=== PATIENT | female | born 1975 | race Caucasian/White ===

== ENCOUNTER → 2016-05-31 | Outpatient (CLI) | payer MEDICAID ==
[~2016-05-31] MED LIST: ATEN50TA PO; CITA20TA7 PO; LABE200T3 PO; LISI40TA PO
--- NOTE | 2016-05-31 18:56 | Diagnostic Imaging Report ---
Bilateral diagnostic mammogram. INDICATION: Palpable areas in the left breast. No prior studies are available for comparison. Reportedly, study was performed before in [place]; however, the patient does not recall where. The current study was also evaluated with a Computer Aided Detection (CAD) system. FINDINGS: The breasts are composed of heterogeneously dense parenchyma which may decrease mammographic sensitivity. Palpable areas in the left breast are marked with no definite underlying lesion. No suspicious calcification or mass identified. IMPRESSION: There is no mammographic evidence of malignancy. Ultrasound evaluation is pending. ACR BI-RADS Category 0: Incomplete. (Needs additional imaging evaluation). Result letter will be mailed to the patient. Note: At least 10% of breast cancer is not imaged by mammography. Dictated by: Dictated on workstation # [id number]
--- NOTE | 2016-05-31 20:26 | Diagnostic Imaging Report ---
EXAM: Bilateral breast ultrasound. INDICATION: Breast lumps in the left side and dense breast parenchyma on the right side with questionable asymmetry. FINDINGS: The four-quadrant and retroareolar region of each breast was scanned with no underlying abnormality. Specifically, the areas of lumps in the left breast outer aspect and axilla demonstrate no underlying abnormality. IMPRESSION: Negative study. Clinical followup of the palpable area is recommended. BI-RADS 1. ACR BI-RADS Category 1: Negative. Result letter will be mailed to the patient. Note: At least 10% of breast cancer is not imaged by mammography. Dictated by: Dictated on workstation # [id number]
== END ==
LOC: RAD 07:53
PROVIDERS: ATTEND Family Medicine
DX: N63 Unspecified lump in breast (principal)
CPT/HCPCS: 77066

== ENCOUNTER 2017-11-16 19:45 | Emergency (ER) | payer MEDICAID ==
[~2017-11-16] VITALS: Ht 170.2 cm; Wt 99.8 kg
[~2017-11-16 19:45] MED LIST changes: -CITA20TA7 PO; +CITA20TA9 PO; -LABE200T3 PO; +LABE200T7 PO
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
[2017-11-16] MEDS ORDERED: meTOprolol TARTRATE 25 MG (LOPRESSOR) TABLET PO ONE (20:45)
[2017-11-16] MEDS ORDERED: IBUPROFEN 800 MG (MOTRIN) TAB PO ONE (21:15)
[2017-11-16] MEDS ORDERED: ACETAMINOPHEN 325 MG TABLET PO ONE (21:15)
--- NOTE | 2017-11-16 21:18 | Diagnostic Imaging Report ---
INDICATION: Fall and right hand pain. TIME OF EXAM: 9:16 p.m. EXAMINATION: Three views of the right hand were obtained. FINDINGS: The metacarpals are intact. The phalanges appear intact. Carpus is unremarkable. The distal radius and ulna are intact. No fractures are seen. IMPRESSION: No acute bony abnormality is identified. Dictated by: Dictated on workstation # [id number]
--- NOTE | 2017-11-16 21:19 | Diagnostic Imaging Report ---
INDICATION: Fall with right arm pain. TIME OF EXAM: 9:14 p.m. EXAMINATION: Two views of the right forearm were obtained. FINDINGS: Alignment at the elbow and wrist is normal. Radius and ulna appear intact. No fractures are seen. IMPRESSION: No acute bony abnormality is identified. Dictated by: Dictated on workstation # [id number]
--- NOTE | 2017-11-16 21:21 | Diagnostic Imaging Report ---
INDICATION: Fall and low back pain. TIME OF EXAM 9:23 p.m. EXAMINATION: Three views of the lumbar spine were obtained. FINDINGS: Curvature and alignment are normal. Vertebral body heights are well maintained. No acute compression fracture is seen. There is degenerative disc disease at the L4-5 level with disc space narrowing and marginal spurring. IMPRESSION: Lumbar spondylosis. No acute bony abnormality is detected. Dictated by: Dictated on workstation # [id number]
--- NOTE | 2017-11-16 21:23 | Diagnostic Imaging Report ---
INDICATION: Fall and right shoulder pain. Time of exam: 9:20 PM 3 views of the right shoulder were obtained. The glenohumeral and acromioclavicular alignment are normal. Acromiohumeral space is normal. No fracture or dislocation is seen. There is calcified granuloma in the right upper lobe. IMPRESSION: No acute bony abnormality is identified. Dictated by: Dictated on workstation # [id number]
[2017-11-16 21:30] VITALS: BP 144/76
== END 2017-11-16 21:30 | disposition home or self-care (01) ==
LOC: EDUNIT# 19:45 → ER 19:46
DX: S63.501A Unspecified sprain of right wrist, initial encounter (principal); M25.511 Pain in right shoulder; R40.2142 Coma scale, eyes open, spontaneous, at arrival to emergency department; R40.2252 Coma scale, best verbal response, oriented, at arrival to emergency department; R40.2362 Coma scale, best motor response, obeys commands, at arrival to emergency department; M54.5 Low back pain; I10 Essential (primary) hypertension; F41.9 Anxiety disorder, unspecified; Z88.1 Allergy status to other antibiotic agents; Z88.8 Allergy status to other drugs, medicaments and biological substances; Z98.51 Tubal ligation status; Z98.890 Other specified postprocedural states; Z87.19 Personal history of other diseases of the digestive system; W19.XXXA Unspecified fall, initial encounter
CPT/HCPCS: 72100; 73030; 73090; 73130

== ENCOUNTER 2018-11-13 13:47 | Emergency (ER) | payer MEDICAID ==
[~2018-11-13] VITALS: Ht 170.1 cm; Wt 90.9 kg
--- NOTE | 2018-11-13 14:53 | ED Upper Extremity ---
General Chief Complaint: Upper Extremity Stated Complaint: RIGHT HAND INJURY Nursing Triage Note: PATIENT TRIPPED AND FELL, LANDED ON HER RIGHT HAND. SWELLIGN AND NUMBNESS AND PAIN TO RIGHT HAND AND WRIST. Nursing Sepsis Screen: No Definite Risk Source: patient Exam Limitations: no limitations History of Present Illness Date Seen by Provider: Nov 13, 2018 Time Seen by Provider: 14:55 Initial Comments Patient is a 43-year-old female that fell this morning at 7 AM to her right hand. Pain in wrist of the 9 out of 10. She was attempting to jump a winch cable. There is a small laceration to the right palm. She is having some pain and tingling around the right thumb and forefinger with limited range of motion. Allergies and Home Medications Allergies Coded Allergies: Cephalexin Monohydrate (Unverified Allergy, 05/28/10) Paroxetine HCl (Unverified Allergy, 05/28/10) Patient Home Medication List Home Medication List Reviewed: Yes Review of Systems Constitutional: no symptoms reported Respiratory: no symptoms reported Cardiovascular: no symptoms reported Gastrointestinal: no symptoms reported Musculoskeletal: see HPI Skin: see HPI Psychiatric/Neurological: Anxiety Past Sdlhwui-Ftooaq-Lnluvj Hx Patient Social History Alcohol Use: Denies Use Recreational Drug Use: Yes (MARIJUANA) Smoking Status: Current Everyday Smoker Type Used: Cigarettes 2nd Hand Smoke Exposure: Yes Recent Foreign Travel: No Contact w/Someone Who Travel: No Recent Infectious Disease Expo: No Recent Hopitalizations: No Physical Abuse: No Sexual Abuse: No Seasonal Allergies Seasonal Allergies: No Past Medical History Surgeries: Yes Section, Ear Surgery, Orthopedic, Tubal Ligation Respiratory: No Cardiac: Yes Hypertension Neurological: No Genitourinary: No Gastrointestinal: No Hemorrhoids Musculoskeletal: Yes Degenerate Disk Disease, Chronic Back Pain Endocrine: No HEENT: No Cancer: No Psychosocial: Yes Anxiety Integumentary: No Blood Disorders: No Physical Exam Vital Signs Vital Signs - First Documented 11/13/18 14:05 Temp 36.0 Pulse 107 Resp 18 B/P (MAP) 148/95 (112) Pulse Ox 98 Capillary Refill : Less Than 3 Seconds Height, Weight, BMI Height: 5'7.00" Weight: 220lbs. oz. 99.293503ei; 31.00 BMI Method:Stated General Appearance: WD/WN, no apparent distress Cardiovascular: normal peripheral pulses, regular rate, rhythm Respiratory: lungs clear, normal breath sounds Gastrointestinal: non tender, soft Shoulder: normal inspection, normal ROM; No bone tenderness Elbow/Forearm: normal inspection, non-tender, no evidence of injury Wrist: Yes bone tenderness; No ecchymosis; Yes limited ROM, Yes soft tissue tenderness; No swelling Hand: Right, laceration (1.5 cm crescent laceration with dried blood, already closed by primary healing. No debris noted in wound), limited ROM, soft tissue tenderness, swelling Neurologic/Tendon: responds to pain Neurologic/Psychiatric: alert, oriented x 3, other Skin: normal color, warm/dry Progress/Results/Core Measures Results/Orders My Orders Orders - BIENVENIDO GUERRERO APRN Hand, Right, 3 Views (11/13/18 14:53) Wrist, Right, 3 Views Or More (11/13/18 14:53) Vital Signs/I&O 11/13/18 14:05 Temp 36.0 Pulse 107 Resp 18 B/P (MAP) 148/95 (112) Pulse Ox 98 Blood Pressure Mean: 112 Departure Communication (Admissions) Patient placed in a thumb spica Impression Primary Impression: Hand laceration Qualified Codes: S61.411A - Laceration without foreign body of right hand, initial encounter Additional Impression: Contusion of wrist Disposition: HOME, SELF-CARE Condition: Stable Departure-Patient Inst. Decision time for Depature: 15:19 Referrals: [facility] [place] (PCP/Family) Primary Care Physician Patient Instructions: Common Wrist Injuries (DC) Add. Discharge Instructions: All discharge instructions reviewed with patient and/or family. Voiced u nderstanding. 1. Wear the splint as needed for comfort 2. Tylenol and Motrin for pain control BIENVENIDO GUERRERO APRN Nov 13, 2018 14:53
--- NOTE | 2018-11-13 15:16 | Diagnostic Imaging Report ---
EXAMINATION: Right hand radiographs, 3 views. COMPARISON: None. HISTORY: 43-year-old female, fall. Right hand and wrist pain. FINDINGS: There is no acute fracture. There is no radiopaque foreign body. There is no subluxation or dislocation. Joint spaces are well preserved. IMPRESSION: No acute bony abnormality of the right hand. Dictated by: Dictated on workstation # [id number]
--- NOTE | 2018-11-13 15:16 | Diagnostic Imaging Report ---
EXAMINATION: Right wrist radiographs, 3 views. COMPARISON: None. HISTORY: 43-year-old female, fall. Right wrist and hand pain. FINDINGS: There is no acute fracture. There is no radiopaque foreign body. There is no abnormal bone alignment. There is no prominent focal soft tissue swelling. The joint spaces are well-preserved. IMPRESSION: Unremarkable radiographs of the right wrist. Dictated by: Dictated on workstation # [id number]
[2018-11-13] MEDS ORDERED: TETANUS,DIPTH,PERTUSS P/F (BOOSTRIX) 0.5 ML VIAL IM ONE ×2 (15:28→15:45)
[2018-11-13 15:40] VITALS: BP 148/95
== END 2018-11-13 15:40 | disposition home or self-care (01) ==
LOC: EDUNIT# 13:47 → ER 13:49
DX: S61.411A Laceration without foreign body of right hand, initial encounter (principal); S60.211A Contusion of right wrist, initial encounter; I10 Essential (primary) hypertension; F41.9 Anxiety disorder, unspecified; F17.210 Nicotine dependence, cigarettes, uncomplicated; Z98.51 Tubal ligation status; Z88.1 Allergy status to other antibiotic agents; Z88.8 Allergy status to other drugs, medicaments and biological substances; W01.0XXA Fall on same level from slipping, tripping and stumbling without subsequent striking against object, initial encounter
CPT/HCPCS: 73110; 73130; 90715

== ENCOUNTER 2018-11-26 10:42 | Emergency (ER) | payer MEDICAID ==
[~2018-11-26] VITALS: Ht 170 cm; Wt 90.0 kg
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
[2018-11-26] MEDS ORDERED: KETOROLAC 30 MG/ML VIAL IVP ONE (11:00)
[2018-11-26] MEDS ORDERED: LORazepam INJ 2 MG/ML (ATIVAN) VIAL ONE (11:03)
[2018-11-26 11:04] LABS: BILIRUBIN,URINE NEGATIVE (NEGATIVE); CLARITY,URINE SLIGHTLY CLOUDY; COLOR,URINE YELLOW; GLUCOSE, URINE (UA) NEGATIVE (NEGATIVE); KETONES,URINE NEGATIVE (NEGATIVE); LEUKOCYTE ESTERASE ,URINE 1+ (NEGATIVE); NITRITE,URINE NEGATIVE (NEGATIVE); PH,URINE 5 (5-9); PROTEIN,URINE 2+ (NEGATIVE); UROBILINOGEN,URINE 1 MG/DL (NORMAL)
[2018-11-26 11:05] LABS: BASOPHILS % (AUTO) 0 % (0-10); EOSINOPHILS # (AUTO) 0.2 10^3/uL (0.0-0.3); EOSINOPHILS % (AUTO) 1 % (0-10); HEMATOCRIT 35 % (35-52); HEMOGLOBIN 12.2 G/DL (11.5-16.0); LYMPHOCYTES # (AUTO) 1.3 X 10^3 (1.0-4.0); LYMPHOCYTES % (AUTO) 7 % (12-44); MEAN CORPUSCULAR HEMOGLOBIN 30 PG (25-34); MEAN CORPUSCULAR HGB CONC 35 G/DL (32-36); MEAN CORPUSCULAR VOLUME 86 FL (80-99); MEAN PLATELET VOLUME 9.4 FL (7.4-10.4); MONOCYTES # (AUTO) 0.9 X 10^3 (0.0-1.0); MONOCYTES % (AUTO) 5 % (0-12); NEUTROPHILS # (AUTO) 15.2 X 10^3 (1.8-7.8); NEUTROPHILS % (AUTO) 86 % (42-75); PLATELET COUNT 268 10^3/uL (130-400); RED CELL DISTRIBUTION WIDTH 12.7 % (10.0-14.5); WHITE BLOOD COUNT 17.7 10^3/uL (4.3-11.0)
[2018-11-26 11:12] LABS: BACTERIA,URINE NEGATIVE /HPF; RBC,URINE RARE /HPF; WBC,URINE RARE /HPF
[2018-11-26 11:13] LABS: HCG,QUALITATIVE URINE NEGATIVE (NEGATIVE)
[2018-11-26] MEDS ORDERED: LORazepam INJ 2 MG/ML (ATIVAN) VIAL IVP PRN (11:15)
[2018-11-26 11:21] LABS: AMPHETAMINE SCREEN, URINE POSITIVE (NEGATIVE); BARBITURATE SCREEN URINE NEGATIVE (NEGATIVE); BENZODIAZEPINES SCREEN URINE NEGATIVE (NEGATIVE); CANNABINOID SCREEN, URINE NEGATIVE (NEGATIVE); COCAINE SCREEN URINE NEGATIVE (NEGATIVE); METHADONE STAT NEGATIVE (NEGATIVE); METHAMPHETAMINE SCREEN URINE S POSITIVE (NEGATIVE); OPIATE SCREEN URINE NEGATIVE (NEGATIVE); OXYCODONE STAT NEGATIVE (NEGATIVE); PROPOXYPHENE STAT NEGATIVE (NEGATIVE); TRICYCLIC ANTIDEPRESSANTS SCRE NEGATIVE (NEGATIVE)
[2018-11-26 11:21] LABS: BAND NEUTROPHILS 0 %; BASOPHILS % (MANUAL) 0 %; EOSINOPHILS % (MANUAL) 3 %; LYMPHOCYTES % (MANUAL) 11 %; MONOCYTES % (MANUAL) 2 %; NEUTROPHILS % (MANUAL) 84 %; RBC MORPH NORMAL
[2018-11-26 11:25] LABS: ALANINE AMINOTRANSFERASE 39 U/L (0-55); ALBUMIN 3.8 GM/DL (3.2-4.5); ALKALINE PHOSPHATASE 84 U/L (40-136); BILIRUBIN,TOTAL 0.3 MG/DL (0.1-1.0); BUN/CREATININE RATIO 17; CALCIUM 8.8 MG/DL (8.5-10.1); CARBON DIOXIDE 21 MMOL/L (21-32); CHLORIDE 111 MMOL/L (98-107); CREATININE SERUM 0.76 MG/DL (0.60-1.30); GFR ESTIMATED > 60; GLUCOSE 99 MG/DL (70-105); POTASSIUM 3.5 MMOL/L (3.6-5.0); SODIUM 139 MMOL/L (135-145); TOTAL PROTEIN 6.8 GM/DL (6.4-8.2)
--- NOTE | 2018-11-26 12:06 | NUR ---
PT RESTING W EYES CLOSED IV FLUIDS CONT AT THIS X. NO CO OF PAIN
--- NOTE | 2018-11-26 12:16 | Diagnostic Imaging Report ---
PROCEDURE: CT urinary tract, rule out kidney stone. TECHNIQUE: Multiple contiguous axial images were obtained through the abdomen and pelvis without the use of intravenous contrast. Auto Exposure Controls were utilized during the CT exam to meet ALARA standards for radiation dose reduction. INDICATION: Abdominal pain There are no prior studies available for comparison. There is no evidence for nephrolithiasis or urolithiasis and the kidneys do not seem to be obstructed. There may be a duplicated collecting system on the right. The urinary bladder is not well-distended and consequently difficult to assess. There is no obvious bladder abnormality evident. The uterus is prominent but not enlarged. There is no pelvic mass or free fluid collection evident. The appendix was visualized and is not abnormally thickened. There is a 1.5 cm area of diminished density in the right lower liver adjacent to the falciform ligament. This finding is of uncertain etiology but could represent hemangioma. If further evaluation is desired, then either a follow-up CT abdomen and pelvis with hemangioma protocol or ultrasound would be recommended. The liver is otherwise unremarkable. The spleen, pancreas, adrenals, gallbladder, aorta and inferior vena cava show no sign of an acute abnormality. The stomach is filled with fluid and consequently difficult to assess. The lung bases are generally clear. There is mild dependent atelectasis in each lower lobe. The bone windows show no sign of a fracture or of a destructive lesion. There is fairly severe degenerative disc and bony disease at L4-L5 and there is a mild central stenosis at this level. IMPRESSION: 1. There is no acute abnormality of the abdomen or pelvis. In particular there is no sign of obstruction of either collecting system by a calculus. 2. The small area of diminished density in the right lobe of the liver adjacent to falciform ligament is of uncertain etiology although most likely benign. Recommendations as above. 3. These results were discussed with Estuardo Sage APRN. Dictated by: Dictated on workstation # [id number]
--- NOTE | 2018-11-26 13:30 | Diagnostic Imaging Report ---
INDICATION: Abdominal pain, bleeding. Patient is now unresponsive to questions. TECHNIQUE: Multiple real time eduardo scale sonographic images were obtained of the pelvis transabdominally. CORRELATION STUDY: None FINDINGS: UTERUS: 8.2 x 5.7 x 4.2 cm. The uterus appears unremarkable. ENDOMETRIUM: 7 mm. The endometrium appearing unremarkable. RIGHT OVARY: Not visualized (patient gives a vague history of one ovary being absent). LEFT OVARY: 2.4 x 2.4 x 1.7 cm The left ovary has a generally unremarkable appearance. Blood flow could not be confirmed, however this is likely owing to patient's movement during the examination. No significant free pelvic fluid. IMPRESSION: 1. Somewhat compromised and limited transabdominal pelvic ultrasound evaluation. 2. Uterus, endometrium and left ovary are generally unremarkable and appearance. Blood flow cannot be confirmed within the left ovary but does appear to be unremarkable. 3. Nonvisualization of the right ovary. Per history may be absent. Dictated by: Dictated on workstation # [id number]
--- NOTE | 2018-11-26 17:00 | NUR ---
PT AWAKE AND OUT OF BED STANDING AT DOOR.
[2018-11-26 17:15] VITALS: BP 122/73
== END 2018-11-26 17:15 | disposition home or self-care (01) ==
LOC: EDUNIT# 10:50 → ER 10:51
DX: R10.31 Right lower quadrant pain (principal); D72.829 Elevated white blood cell count, unspecified; I10 Essential (primary) hypertension; F41.9 Anxiety disorder, unspecified; Z88.1 Allergy status to other antibiotic agents; Z77.22 Contact with and (suspected) exposure to environmental tobacco smoke (acute) (chronic); Z98.51 Tubal ligation status
CPT/HCPCS: 36415; 74176; 76856; 80053; 80306; 81000; 84703; 85007; 85027

== ENCOUNTER 2019-03-10 13:04 | Emergency (ER) | payer MEDICAID ==
[~2019-03-10] VITALS: Ht 170 cm; Wt 91.2 kg
[2019-03-10] MEDS ORDERED: DOXY100T2 PO (13:38)
[2019-03-10] MEDS ORDERED: ACHD5005 PO (13:38)
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
[2019-03-10] MEDS ORDERED: HYDROcodone/APAP 5 MG/325 MG (LORTAB) TAB PO ONE (13:45)
[2019-03-10] MEDS ORDERED: LIDOCAINE/EPI 2% 1:100,00 (XYLOCAINE) 20 ML VIAL INJ ONE (13:45)
[2019-03-10 13:50] VITALS: BP 157/92
== END 2019-03-10 13:50 | disposition home or self-care (01) ==
LOC: EDUNIT# 13:04 → ER 13:05
DX: L02.415 Cutaneous abscess of right lower limb (principal); I10 Essential (primary) hypertension; F41.9 Anxiety disorder, unspecified; Z88.1 Allergy status to other antibiotic agents; Z88.8 Allergy status to other drugs, medicaments and biological substances; Z77.22 Contact with and (suspected) exposure to environmental tobacco smoke (acute) (chronic); Z98.51 Tubal ligation status
CPT/HCPCS: 10060; 87070; 87077; 87186; 87205

== ENCOUNTER 2019-04-19 13:49 | Emergency (ER) | payer MEDICAID ==
[~2019-04-19 13:49] MED LIST changes: +ACHD5005 PO; +DOXY100T2 PO
--- NOTE | 2019-04-19 14:36 | NUR ---
Pt reports to registration that she is leaving
== END 2019-04-19 14:36 | disposition left against medical advice (07) ==
LOC: EDUNIT# 13:49 → ER 13:51
DX: R42 Dizziness and giddiness (principal); R51 Headache; R11.0 Nausea; R68.83 Chills (without fever)

== ENCOUNTER 2019-08-17 02:13 | Emergency (ER) | payer MEDICAID ==
[~2019-08-17] VITALS: Ht 170 cm; Wt 84.0 kg
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
[2019-08-17 03:38] LABS: CLARITY,URINE CLOUDY; COLOR,URINE AMBER; GLUCOSE, URINE (UA) NEGATIVE (NEGATIVE); KETONES,URINE NEGATIVE (NEGATIVE); LEUKOCYTE ESTERASE ,URINE NEGATIVE (NEGATIVE); NITRITE,URINE NEGATIVE (NEGATIVE); PROTEIN,URINE 2+ (NEGATIVE)
[2019-08-17 03:39] LABS: BACTERIA,URINE TRACE /HPF; BILIRUBIN,URINE 1+ (NEGATIVE); HYALINE CASTS, URINE 0-2 /LPF; WBC,URINE 0-2 /HPF
[2019-08-17 03:40] LABS: AMPHETAMINE SCREEN, URINE POSITIVE (NEGATIVE); BARBITURATE SCREEN URINE NEGATIVE (NEGATIVE); BENZODIAZEPINES SCREEN URINE NEGATIVE (NEGATIVE); CANNABINOID SCREEN, URINE POSITIVE (NEGATIVE); COCAINE SCREEN URINE NEGATIVE (NEGATIVE); METHADONE STAT NEGATIVE (NEGATIVE); METHAMPHETAMINE SCREEN URINE S POSITIVE (NEGATIVE); OPIATE SCREEN URINE NEGATIVE (NEGATIVE); OXYCODONE STAT NEGATIVE (NEGATIVE); PROPOXYPHENE STAT NEGATIVE (NEGATIVE); TRICYCLIC ANTIDEPRESSANTS SCRE NEGATIVE (NEGATIVE)
[2019-08-17] MEDS ORDERED: ONDANSETRON 4 MG (ZOFRAN) ORAL DISSOLVE TAB PO ONE (04:00)
[2019-08-17] MEDS ORDERED: ONDA4TAB11 PO (05:20)
[2019-08-17] MEDS ORDERED: ACETAMINOPHEN 500 MG TAB (TYLENOL) PO ONE (05:30)
--- NOTE | 2019-08-17 05:32 | NUR ---
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 LYN STATED THAT PT WOULD NEED TO CALL AND SPEAK WITH HER FOR EVAL TO DETERMINE ACCEPTANCE AND NO DETAILS FROM MEDICAL STAY WOULD BE REQUIRED.
[2019-08-17 05:42] VITALS: BP 138/92
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
== END 2019-08-17 05:42 | disposition home or self-care (01) ==
LOC: EDUNIT# 02:13 → ER 02:15
DX: S09.90XA Unspecified injury of head, initial encounter (principal); S80.12XA Contusion of left lower leg, initial encounter; S80.11XA Contusion of right lower leg, initial encounter; F15.90 Other stimulant use, unspecified, uncomplicated; F12.90 Cannabis use, unspecified, uncomplicated; I10 Essential (primary) hypertension; G89.29 Other chronic pain; M54.5 Low back pain; M54.2 Cervicalgia; R40.2142 Coma scale, eyes open, spontaneous, at arrival to emergency department; R40.2252 Coma scale, best verbal response, oriented, at arrival to emergency department; R40.2362 Coma scale, best motor response, obeys commands, at arrival to emergency department; F17.210 Nicotine dependence, cigarettes, uncomplicated; Z98.890 Other specified postprocedural states; Z91.14 Patient's other noncompliance with medication regimen; Z88.1 Allergy status to other antibiotic agents; Z88.8 Allergy status to other drugs, medicaments and biological substances; Z79.891 Long term (current) use of opiate analgesic; Y04.8XXA Assault by other bodily force, initial encounter
CPT/HCPCS: 70450; 70486; 72125; 80306; 81000; 84703